=== PATIENT | female | born 1940 | race Caucasian/White ===

== ENCOUNTER 2024-10-15 15:07 | Outpatient (AMB) | payer MEDICARE, OTHER, SELFPAY ==
--- NOTE | 2024-10-15 15:17 | A.OFFVIS_ITS ---
Intake Visit Reasons: Chronic pain syndrome Intake Note: Pain today 04/19 Chief Cardiopulmonary Technologist Required: No Accompanied by: Daughter Allergies Beef Containing Products Allergy (Unknown, Verified 10/15/24 15:26) Unknown cephalexin Allergy (Unknown, Verified 10/15/24 15:26) Unknown Cephalosporins Allergy (Unknown, Verified 10/15/24 15:26) Unknown [place] And Derivatives Allergy (Unknown, Verified 10/15/24 15:26) Unknown codeine Allergy (Unknown, Verified 10/15/24 15:26) Nausea and Vomiting egg Allergy (Unknown, Verified 10/15/24 15:26) Unknown furosemide Allergy (Unknown, Verified 10/15/24 15:26) Unknown house dust Allergy (Unknown, Verified 10/15/24 15:26) Unknown ibuprofen Allergy (Unknown, Verified 10/15/24 15:) kidney shuts down inverted sugar Allergy (Unknown, Verified 10/15/24 15:26) Unknown Iodinated Contrast Media Allergy (Unknown, Verified 10/15/24 15:26) Hives lactase Allergy (Unknown, Verified 10/15/24 15:26) Unknown latex Allergy (Unknown, Verified 10/15/24 15:26) Rash levofloxacin Allergy (Unknown, Verified 10/15/24 15:26) Swelling milk Allergy (Unknown, Verified 10/15/24 15:26) Unknown Milk Containing Products (Dairy) Allergy (Unknown, Verified 10/15/24 15:26) Unknown mold Allergy (Unknown, Verified 10/15/24 15:26) Unknown nitrofurantoin Allergy (Unknown, Verified 10/15/24 15:26) Unknown Penicillins Allergy (Unknown, Verified 10/15/24 15:26) Unknown pollen extracts Allergy (Unknown, Verified 10/15/24 15:26) Unknown Pork/Porcine Containing Products Allergy (Unknown, Verified 10/15/24 15:26) Unknown potato Allergy (Unknown, Verified 10/15/24 15:26) Unknown Poultry Allergy (Unknown, Verified 10/15/24 15:26) Unknown rice Allergy (Unknown, Verified 10/15/24 15:26) Unknown Sulfa (Sulfonamide Antibiotics) Allergy (Unknown, Verified 10/15/24 15:26) Unknown wheat Allergy (Unknown, Verified 10/15/24 15:26) Unknown HPI Comments Details: Marta is very pleasant 84 years old female who presents in my office with complains on multiple pain generators. She reported pain in posterior neck bilateral shoulders and bilateral groins. She reports that because of her pain she can not sleep normally can not do activities of daily living can not take care of herself can not function normally. She reports her pain today is 10/10. She is retired individual. She reports that she uses wheelchair for ambulation but not for the reason of pain she became after the stroke very unstable with her gait. She reports that pain is most severe at night. In terms of tissue damage he reports her pain as shooting, stabbing, sharp, wrenching, hurting, aching, exhausting, killing, piercing sensation. She had multiple images of her painful conditions including x-rays of the shoulders x-ray of the back and x-ray of the hips. Unfortunately those images are not available for me. She had physical therapy in the past and now she has engaged in for sessions of physical therapy however she is failing to perform home exercise programs. She tried massage therapy with no success in the past and 10s unit which she denies help. She reported that Dr. Lane from [facility] perform some injections for her those injections were not image guided and they stopped helping the patient recently. The referral note states that the injections were trigger point injections. She has multiple medical problems including history of aortic stenosis with history of aortic valve replacement and CABG. She has history of stroke and history of hypertension she reports history of heart murmur she is currently not on any antidiabetic medications however she was diagnose with diabetes we in 2019. She had scarlet fever as a child. She has obstructive sleep apnea and uses CPAP machine at home. She has a history of nonfunctional kidney nephrectomy history of subdural hematoma she is suffering from chronic kidney disease and vertigo. She was diagnose with lumbar radiculitis. She has hypothyroidism she was obese but now she lost the weight and no longer require medications to treat her diabetes. Her past surgical history significant for appendectomy, breast cancer removal, coronary artery bypass grafting and aortic valve replacement. He denies smoking cigarettes she stopped smoking 40 years ago. She denies drinking alcohol, she drinks caffeinated beverages and she continually and excessively drinks soda. She denies recreational drugs. [facility] Medical History (Updated 10/15/24 @ 17:01 by Yaya Pearson MD) Chronic pain syndrome Obesity Insomnia Hypertension Allergic rhinitis Asthma Old myocardial infarction Constipation Hypothyroidism Aortic stenosis Tremor Osteoporosis Spinal stenosis of lumbar region Vertigo Diabetes type 2 Microalbuminuria Chronic kidney disease, stage 3 Subdural hematoma Diverticulitis of colon Depression Fatty liver Cholelithiasis Arthritis Fibromyalgia Surgical History (Updated 10/15/24 @ 15:52 by Tasha Pardo) History of right nephrectomy Social History (Updated 10/15/24 @ 15:44 by Tasha Pardo) Patient Tobacco Use Status: Former Tobacco user Review of Systems Const Reports no additional complaints ENT Reports Normal hearing present Card Reports as per HPI Resp Reports as per HPI GI Reports as per HPI Reports as per HPI Musc Reports as per HPI Neuro Reports as per HPI, Reports Normal hearing present, Denies Abnormal speech present, Denies confusion and Denies Sensory deficit (Neuro) Psych Reports no additional complaints and Denies confusion Physical Exam Const General: no acute distress; No confusion Orientation/consciousness: patient oriented x3 and No confusion Eyes General: appearance normal, both eyes and all related structures Pupils: Equal, round and reactive pupils present EOM: EOMs intact bilaterally Neck Other: Limited range of motion of cervical spine. Neck: No full ROM and Yes no meningeal signs Chest Chest palpation & inspection: normal inspection of the chest Resp Effort & Inspection: normal respiratory effort, able to speak in complete sentences, normal respiratory pattern, no audible wheezes and no cough Cardio Jugular venous distension: no JVD GI Inspection: Yes normal to inspection Neuro General: patient oriented x3, gait normal, no meningeal signs and No confusion Cranial nerves: Yes CN's II-XII intact bilaterally, Yes Equal, round and reactive pupils present, Yes Normal hearing present and Yes Ability to uche aterally elevate shoulders present Speech: No Abnormal speech present Gait exam (Neuro): Normal gait present Motor exam (neuro): 5/5 motor strength present throughout Sensory Exam: No Sensory deficit (Neuro) Extrem Other: Limited range of motion of bilateral shoulders. Limited range of motion of the cervical spine. General: No pedal edema Psych Speech and movement: Normal speech and movement present Affect: normal affect Attitude: cooperative Thought process: Normal thought process present Thought content: Normal thought content present Insight: Good insight present (Psych) Judgement: Good judgement present (Psych) Assessment & Plan Assessment & Plan (1) Bilateral shoulder pain: Code(s): M25.511 - Pain in right shoulder; M25.512 - Pain in left shoulder Category: Medical (2) Cervicalgia: Code(s): M54.2 - Cervicalgia Category: Medical (3) Osteoarthritis of shoulders, bilateral: Code(s): M19.011 - Primary osteoarthritis, right shoulder; M19.012 - Primary osteoarthritis, left shoulder Category: Medical (4) Osteoarthritis of hips, bilateral: Code(s): M16.0 - Bilateral primary osteoarthritis of hip Category: Medical (5) Spondylosis of cervical spine without myelopathy: Code(s): M47.812 - Spondylosis without myelopathy or radiculopathy, cervical region Category: Medical Plan It looks like that the injections which this patient had performed were trigger point injections. They lost its effectiveness by this time. I requested her to sign medical information release note to obtain images from the [facility]. After that I will be able to schedule her for bilateral shoulder injections bilateral hip injection possibly cervical medial branch blocks. After we will receive the images I will schedule her for appropriate procedures. Coding Level of Care Code New Pt Level 3 (53549) Diagnoses Bilateral shoulder pain M25.511; M25.512 Cervicalgia M54.2 Osteoarthritis of shoulders, bilateral M19.011; M19.012 Osteoarthritis of hips, bilateral M16.0 Spondylosis of cervical spine without myelopathy M47.812
--- OUTSIDE RECORDS SUMMARY | 2024-10-15 17:56 | XMS_ITS | Encounter Summary ---
Author Organization [place] [address] Care Team Providers Care Bed And Breakfast Innkeeper Name Role Phone Guerline Lott MD Primary Care Provider Reason for Visit * Reason Onset Date Comments Forms/questionnaires 10/09/2024 [facility] ( 025 - 11/30/2024) Encounter Details Date Type Department Care Team (Late st Contact Info) Description 10/09/2024 Telephone Adult Medicine - [place] [address] [place] [address] Guerline Lott MD [address] [place] [address] Forms/questionnaires ([facility] (10/02/2024 - 11/30/2024)) Social History Tobacco Use Types Packs/Day Years Used Date Smoking Tobacco: Former Cigarettes 1 08/25/1956 - 08/11/1984 Smokeless Tobacco: Never Alcohol Use Standard Drinks/Week Comments No 0 (1 standard drink = 0.6 oz pur e alcohol) Comments No Sex and Gender Information Value Date Recorded Sex Assigned at Female 09/07/2024 2:59 PM EST Legal Sex Female 11:16 AM EST Gender Identity Female 09/07/2024 2:59 PM EST Sexual Orientation Straight 09/07/2024 2: 59 PM EST documented as of this encounter Functional Status * Are you deaf or do you have serious difficulty hearing? Answer Date of Assessment Author No 09/27/2024 10:49 PM EDT Lily Veliz RN * Are you blind or do you have serious difficulty seeing, even when wearing glasses? Answer Date of Assessment Author No 09/27/2024 10:49 PM EDT Lily Veliz RN * Do you have serious difficulty walking or climbing stairs? Answer Date of Assessment Author Yes 09/27/2024 10:49 PM EDT Lily Veliz RN * Do you have serious difficulty dressing or bathing? Answer Date of Assessment Author Yes 09/27/2024 10:49 PM EDT Lily Veliz RN * Because of a physical, mental, or emotional condition, do you have serious difficulty doing errandsalone such as visiting the doctor? Answer Date of Assessment Author Yes 09/27/2024 10:49 PM CATET Lily Veliz RN documented as of this encounter Mental Status * Because of a physical, mental, or emotional condition, do you have serious difficulty concentrating, remembering, or making decisions? (5 years old or older) Answer Entry Date Author No 09/27/2024 10:49 PM EDT Lily Veliz RN documented in this encounter Progress Notes * Ayaka Salter MA - 10/15/2024 1:18 PM EDT Order encounter created. * Guerline Lott MD - 10/11/2024 12:52 PM EDT Recert signed. * Ayaka Salter MA - 10/10/2024 9:52 AM EDT Placed in pcp's in basket. * Livia Garcia - 10/09/2024 11:11 AM EDT HOME HEALTH CERTIFICATION AND PLAN OF CARE DATE RECEIVED:10/09/2024 AGENCY: [employer] CERT DATES:10/02/2024 - 11/30/2024 FAX NUMBER:[phone] [facility]:Given to Ayaka documented in this encounter Plan of Treatment Upcoming Encounters Date Type Department Care Team (Late st Contact Info) Description 10/24/2024 3:30 PM EDT Office Visit Adult Medicine - [place] [address] [place] [address] Hilario Lockett, PA [address] [place] [address] 10/25/2024 3:00 PM EDT Consult Orthopedic Surgery - [place] [address] [phone] Nhan Bermudez DPM [address] [address] 12/05/2024 3:00 PM EDT Office Visit Nephrology - [address] [address] Alex Davidson MD [address] [facility] [address] [place] [address] documented as of this encounter Visit Diagnoses Not on filedocumented in this encounter Care Teams Bed And Breakfast Innkeeper Relationship Specialty Start Date End Date Guerline Lott MD [address] [facility] [address] [place] [address] PCP - General Internal Medicine 12/28/21 documented as of this encounter
--- OUTSIDE RECORDS SUMMARY | 2024-10-15 17:56 | XMS_ITS | Clinical Summary ---
Author Organization [facility] [address] [facility] lding Address [address] [place] [address] Phone Care Team Providers Care Material Handler Floorperson Name Role Phone Guerline Lott MD Primary Care Provider Allergies Active Allergy Reactions Criticality Noted Date Comments Cephalexin 08/24/2005 Cephalosporins 04/05/2023 Codeine Nausea And Vomiting,Dermatitis ,Rash High 08/24/2005 Food Allergy Formula 08/24/2005 potatoes - wheat - eggs - rice - sugar - poultry - beef & pork - citrus - milk & milk products Furosemide 09/17/2013 House Dust 07/07/2006 Ibuprofen High 08/24/2005 states kidney shuts down Iodinated Contrast Media Hives Low 01/30/2008 Resolved with Benadryl Lactase 04/05/2023 Latex Rash High 08/24/2005 states skin sloghing off Levofloxacin Swelling High 08/24/2005 Mold 08/24/2005 altemaria - cephalosporium- pullularia - rhizopus Nitrofurantoin 08/24/2005 Other 04/09/2024 Kdc:albumin, Egg+flu Virus Vaccine+thimerosal+ pork Allergy Penicillins 08/24/2005 as young child - does not remember Pollen Extracts 09/15/2007 Sulfa (Sulfonamide Antibiotics) 09/17/2013 Medications clopidogreL (PLAVIX) 75 mg tablet Take 1 tablet (75 mg total) by mouth 1 (one) time each day. 02/27/202 4 Active levothyroxine (SYNTHROID, LEVOTHROID) 50 mcg tablet Take 1 tablet (50 mcg total) by mouth 1 (one) time each day. 4 Active atorvastatin (LIPITOR) 40 mg tablet Take 1 tablet (40 mg total) by mouth 1 (one) time each day. 3 Active venlafaxine XR (EFFEXOR-XR) 75 mg 24 hr capsule Take 1 capsule (75 mg total) by mouth 2 (two) times a day. 4 Active furosemide (LASIX) 20 mg tablet Take 1 tablet (20 mg total) by mouth 1 (one) time each day. 4 Active diclofenac (VOLTAREN) 1 % topical gel Apply 1 Each topically 2 times daily as needed (leg pain). 3 Active CRANBERRY ORAL Cranberry 600 MG Tab - Take by mouth. Once daily 3 Active acetaminophen (TYLENOL 8 HOUR) 650 mg 8 hr tablet Take 1 Tablet by mouth every 8 hours as needed for Pain. 3 Active nitroglycerin (NITROSTAT) 0.[address] 1 tablet under the tongue every 5 minutes as needed for Chest pain. 1 Active cholecalcifero l (VITAMIN D-3) 50 mcg (2,000 unit) capsule Take by mouth. Activ e blood-glucose meter kit Use to check blood sugar once daily 1 Active MULTIVITAMIN WITH MINERALS ORAL Take by mouth. Activ e blood sugar diagnostic (FreeStyle Lite Strips) test strip Use to check blood sugar once daily 8 Active fluticasone propionate (Flovent Diskus) 100 mcg/actuation diskus inhaler USE 1 INHALATION TWICE A DAY 3 Active amitriptyline (ELAVIL) 10 mg tablet TAKE 1 TABLET AT BEDTIME 90 tablet 3 4 Active fenofibrate micronized (LOFIBRA) 200 mg capsule Take 1 capsule (200 mg total) by mouth 1 (one) time each day before breakfast. 90 capsule 1 4 Active losartan (COZAAR) 25 mg tablet Take 1 tablet (25 mg total) by mouth 1 (one) time each day. 30 each 11 5 08/01/19 26 Active amLODIPine (NORVASC) 5 mg tablet Take 1 tablet (5 mg total) by mouth 1 (one) time each day. 90 each 3 5 08/01/19 26 Active meclizine (ANTIVERT) 25 mg tablet Take 1 tablet (25 mg total) by mouth 3 (three) times a day if needed for dizziness. 270 tablet 5 09/21/19 26 Active meclizine (ANTIVERT) 25 mg tablet Take 1 tablet (25 mg total) by mouth 3 (three) times a day if needed for dizziness. 270 tablet 5 09/21/19 25 Discontinu ed(Reorder ) Active Problems Problem Noted Date Diagnosed Date H/O right nephrectomy 08/01/2024 Cholelithiasis 08/22/2021 Overview (04/09/2024): On US at [facility] Fatty liver 08/22/2021 Overview (04/09/2024): On US at [facility] Diverticulosis of colon 07/28/2021 Overview (04/09/2024): Incidental finding on CT 06/29/2021 Subdural hematoma 06/11/2019 Overview (04/09/2024): [facility]; then rehab CKD (chronic kidney disease) stage 3, GFR 30-59 ml/min 01/02/2019 Microalbuminuria 01/02/2019 Type 2 diabetes mellitus with renal manifestatio ns 01/02/2019 Type 2 diabetes mellitus with cataract 9 Vertigo 07/28/2018 Spinal stenosis, lumbar 06/27/2017 Lumbar radiculitis 03/04/2017 NELLIE on CPAP 03/14/2015 Overview (04/09/2024): 14 cm H2O Type 2 diabetes mellitus with vascular disease 0 01/28/2015 Osteopenia 06/19/2014 Overview (04/09/2024): T score -2.3 left femoral neck; hip fracture risk 4.9% 07/01/16: Tscore -2.4 Tremor 06/11/2013 Aortic stenosis 12/07/2012 Overview (04/09/2024): Dr. Joshua, tissue valve, 05/2015. Hypothyroidism, acquired 11/01/2008 Constipation 01/12/2007 Old myocardial infarction 07/07/2006 Overview (04/09/2024): Total occlusion of LAD unable to stent--2005. Evidence of small apical FL from nuclear scan--see note of Dr. Elam on 04/22/2006. Asthma, mild persistent 03/17/2006 Diaphragmatic hernia 03/17/2006 Allergic rhinitis 08/25/2005 Chronic pain syndrome 08/25/2005 Depression 08/25/2005 Essential hypertension, benign 08/25/2005 Hyperlipidemia 08/25/2005 Insomnia 08/25/2005 Obesity 08/25/2005 Encounters Date Type Department Care Team Description 10/15/2024 Billing Patient Not Present Adult Medicine [facility] [address] [place] [address] Guerline Lott MD Other chronic back pain (Primary Dx); History of falling; Unspecified injury of head, subsequent encounter 10/15/2024 Billing Patient Not Present Adult Medicine [facility] [address] [place] [phone] Guerline Lott MD 10/09/2024 Telephone Adult [facility] [address] [place] [address] Guerline Lott MD Forms/questionnaires ([facility] (10/02/2024 - 11/30/2024)) 10/03/2024 Telephone Adult Medicine [facility] [address] [place] [address] Guerline Lott MD 09/27/2024 8:19 PM EDT - 09/28/2024 2:40 PM EDT Emergency [facility] [address] [place] [phone] Evelyn Somers MD Kenton, Mark A, MD Head injury, initial encounter (Primary Dx); Fall, initial encounter Discharge Disposition: Home or Self Care 09/11/2024 3:33 PM EST - 09/11/2024 11:59 PM EST Hospital Encounter [facility] [address] [place] [address] Carpal tunnel syndrome on both sides; Radiculopathy affecting upper extremity Discharge Disposition: Home or Self Care 09/10/2024 3:15 PM EST Office Visit Adult Medicine - [address] [phone] Renard Woo PA Chronic pain syndrome (Primary Dx); Stage 3b chronic kidney disease (CMS/HCC); Essential hypertension, benign; Type 2 diabetes mellitus with stage 3b chronic kidney disease, without long-term current use of insulin (CMS/HCC); Injury of nail bed of toe 09/06/2024 Telephone Adult Medicine - [address] [phone] Guerline Lott MD Arthritis 08/06/2024 5:44 PM EST - 08/06/2024 11:59 PM EST Hospital Encounter Radiology Department - [address] [phone] Stage 3b chronic kidney disease (CMS/HCC); Essential hypertension, benign; Type 2 diabetes mellitus with stage 3b chronic kidney disease, without long-term current use of insulin (CMS/HCC); H/O right nephrectomy; Pure hypercholesterolemia Discharge Disposition: Home or Self Care 08/01/2024 4:00 PM EST Consult Nephrology - [address] [phone] Alex Davidson MD Stage 3b chronic kidney disease (CMS/HCC) (Primary Dx); Essential hypertension, benign; Type 2 diabetes mellitus with stage 3b chronic kidney disease, without long-term current use of insulin (CMS/HCC); H/O right nephrectomy; Pure hypercholesterolemia from Last 3 Months Immunizations Name Administration Dates Next Due Influenza Quadravalent, MDCK , 0.5ml, with preservative (Flucelvax) 6mo and older 04/08/2017 Influenza trivalent, 0.5mL ( Fluzone High-dose) 65yo and older 07/01/2020,04/17/2018 Moderna SARS-CoV-2 COVID-19, mRNA, LNP-S, preservative free 05/30/2021 Pfizer (ages 12 & older) Bivalent, COVID-19 01/08 Pneumococcal conjugate 13 va lent (Prevnar 13, PCV13) 2mo and older 01/28/2015 Pneumococcal polysaccharide 23 valent (Pneumovax 23) 2yo and older 09/17/2008 Td Tetanus diptheria (Tdvax) 7yo and older 09/17 Zoster Live 11/28/2012 Surgical History Surgery Date Site/Laterality Comments NEPHRECTOMY 2005 Right PROCEDURE: HISTORICAL NEPHRECTOMY MASTECTOMY 2004 PROCEDURE: HISTORICAL MASTECTOMY; COMMENT: Right CATARACT EXTRACTION PROCEDURE: HISTORICAL CATARACT REMOVAL; COMMENT: bilateral TOTAL KNEE ARTHROPLASTY PROCEDURE: NH ARTHRP KNE CONDYLE&PLATU MEDIAL&LAT COMPARTMENTS; COMMENT: Dr. Gavin: wants abx prophylaxis for dental procedures OTHER SURGICAL HISTORY 05/16/2015 PROCEDURE: NH CABG W/ARTERIAL GRAFT SINGLE ARTERIAL GRAFT; COMMENT: Dr. Joshua; LOZANO to LAD OTHER SURGICAL HISTORY 05/16/2015 PROCEDURE: NH RPLCMT AORTIC VALVE ANNULUS ENLGMENT NONC SINUS; COMMENT: tissue COLONOSCOPY 07/13/2005 PROCEDURE: HISTORICAL COLONOSCOPY; COMMENT: nl COLONOSCOPY 07/15/2015 PROCEDURE: HISTORICAL COLONOSCOPY; COMMENT: Shital UPPER GASTROINTESTINAL ENDOSCOPY 12/06/2006 PROCEDURE: NH UPPER GI ENDOSCOPY PERFORMED; COMMENT: esophagitis, gastritis--- esophageal and gastric biopsies performed, duodenal biopsies not performed. COLONOSCOPY 10/18/2017 PROCEDURE: HISTORICAL COLONOSCOPY; COMMENT: diverticulosis UPPER GASTROINTESTINAL ENDOSCOPY 10/18/2017 PROCEDURE: UPPER GI ENDOSCOPY/EXAM; COMMENT: erosive gastritis Medical History Medical History Date Comments Essential hypertension, benign D X:Essential hypertension, benign Esophageal reflux DX:Esophageal reflux Fatty liver DX:Fatty liver; COMMENT: U/S 09/17 NELLIE on CPAP 03/14/2015 DX:NELLIE on CPAP Allergic rhinitis 08/25/2005 DX:Allergic rh initis Depression 08/25/2005 DX:Depression CKD (chronic kidney disease) stage 3, GFR 30-59 ml/min ([facility]/HCC) 01/02/2019 DX:CKD (chronic kidney dise ase) stage 3, GFR 30-59 ml/min ([facility]) Microalbuminuria 01/02/2019 DX:Microalbumin uria History of CVA (cerebrovascu lar accident) 01/02/2019 DX:History of CVA (cerebrova scular accident); COMMENT: 10/2018 Diaphragmatic hernia 03/17/2006 DX:Diaphrag matic hernia Type 2 diabetes mellitus wit h renal manifestations (CMS/HCC) 01/02/2019 DX:Type 2 diabetes mellitus with renal manifestations (HCC) History of bilateral catarac t extraction 01/02/2019 DX:History of bilateral vladimir ract extraction Type 2 diabetes mellitus with cataract 01/02/2019 DX:Type 2 diabetes mellitus with cataract (HCC) Obesity 08/25/2005 DX:Obesity Hyperlipidemia 08/25/2005 DX:Hyperlipidemi a Insomnia 08/25/2005 DX:Insomnia History of breast cancer 08/25/2005 DX:Hist ory of breast cancer; COMMENT: 2003. Chemo, Taxol, Femara, s/p mastectomy and radiation. Asthma, mild persistent 03/17/2006 DX:Asthm a, mild persistent Aortic stenosis 12/07/2012 DX:Aortic stenos is; COMMENT: Dr. Joshua, tissue valve, 05/2015. S/P CABG x 1 05/16/2015 DX:S/P CABG x 1; COMMENT: Dr. Joshua Chronic pain syndrome DX:Chronic pain syndrome Diverticulosis of colon 07/28/2021 DX:Diver ticulosis of colon; COMMENT: Incidental finding on CT 06/29/2021 Family History Medical History Relation Name Comments No Known Problems Daughter CABG Father Heart attack Father Hypertension Father Mental illness Father Stroke Father Arthritis Mother Heart attack Mother Hypertension Mother Mental illness Mother Other cancer Sister 1 Breast cancer Sister 2 Breast cancer Sister 3 No Known Problems Son 1 Colon polyps Son 2 Relation Name Status Comments Daughter Alive 1 daughter 36 y ears old, healthy (rare cancer) Father Maternal Grandfather Maternal Grandmother Mother Paternal Grandfather Paternal Grandmother Sister 1 Alive Sister 2 Sister 3 Son 1 Alive 2 sons ages 41 and 38, healthy Son 2 Alive Social History Tobacco Use Types Packs/Day Years Used Date Smoking Tobacco: Former Cigarettes 1 08/25/1956 - 08/11/1984 Smokeless Tobacco: Never Tobacco Cessation:Counseling Given: Not Answered Alcohol Use Standard Drinks/Week Comments No 0 (1 standard drink = 0.6 oz pur e alcohol) Comments No Sex and Gender Information Value Date Recorded Sex Assigned at Female 09/07/2024 2:59 PM EST Legal Sex Female 11:16 AM EST Gender Identity Female 09/07/2024 2:59 PM EST Sexual Orientation Straight 09/07/2024 2: 59 PM EST Obstetrics History Last Filed Vital Signs Vital Sign Reading Time Taken Comments Blood Pressure 160/61 09/28/2024 12:37 PM EDT Pulse 80 09/28/2024 12:37 PM EDT Temperature 36.8 ??C (98.2 ??F) 09/28/2024 12:37 PM E DT Respiratory Rate 18 09/28/2024 12:37 PM EDT Oxygen Saturation 97% 09/28/2024 12:37 PM EDT Inhaled Oxygen Concentration - - Weight 70.8 kg (156 lb) 09/27/2024 8:29 PM EDT Height 161.5 cm (5' 3.6 ) 09/27/2024 8:29 PM EDT Body Mass Index 27.12 09/27/2024 8:29 PM EDT Plan of Treatment Upcoming Encounters Date Type Department Care Team (Late st Contact Info) Description 10/24/2024 3:30 PM EDT Office Visit Adult Medicine - [place] [address] [place] [phone] Hilario Lockett PA [address] [place] [address] 10/25/2024 3:00 PM EDT Consult Orthopedic Surgery - [place] [phone] [phone] Nhan Bermudez DPM [address] [phone] 12/05/2024 3:00 PM EDT Office Visit Nephrology - [address] [phone] Alex Davidson MD [address] [facility] [address] [place] [phone] Health Maintenance Due Date Last Done Comments Diabetes: Annual Foot Exam 1950 Diabetes: Annual Retina Eye Exam 1950 Zoster Vaccines (2 of 3) 01/23/2013 11/28/2012 RSV Immunization Adult Patients (1 - 1-dose 75+ series) 2016 DTaP,Tdap,and Td Vaccines (2 - Td or Tdap) 09/17/2018 09/17/2008 Depression Screening 06/19/2022 Falls Risk Assessment 06/19/2022 Osteoporosis Screening (Bone Density Screening) 06/19/2022 Social Influencers of Health Screening 06/19/2022 Medicare Annual Wellness Visit 04/05/2024 04/05/2023 Colorectal Cancer Screening: Colonoscopy 04/09/2024 10/18/2017 Diabetes: Blood Sugar Control Test (HGBA1C) 06/01/2024 11/30/2023, 11/30/2023 Diabetes: Annual Urine Albumin-Creatinine Ratio (uACR) 08/01/2024 08/01/2023 Influenza Vaccine (Season Ended) 2025 06/30/2021, 04/10/2021, 07/01/2020, Additional history exists Diabetes: Annual GFR (Glomerular Filtration Rate) 09/27/2025 09/27/2024, 05/15/2024, 11/30/2023, Additional history exists Hypertension/CHF/CAD Annual BMP Blood Test 09/27/2025 09/27/2024, 05/15/2024, 11/30/2023, Additional history exists Cholesterol Screening (Lipid Panel) 12/13/2028 12/14/2023, 12/14/2023, 12/14/2023, Additional history exists Pneumococcal Vaccine: 50+ Years Completed 01/28/2015, 09/17/2008 COVID-19 Vaccine Completed 06/02/2024, , 05/30/2021, Additional history exists HIB Vaccines Aged Out No longer eligi ble based on patient's age to complete this topic HPV Vaccines Aged Out No longer eligi ble based on patient's age to complete this topic Hepatitis A Vaccines Aged Out No long er eligible based on patient's age to complete this topic Hepatitis B Vaccines Aged Out No long er eligible based on patient's age to complete this topic IPV Vaccines Aged Out No longer eligi ble based on patient's age to complete this topic MMR Vaccines Aged Out No longer eligi ble based on patient's age to complete this topic Meningococcal ACWY Vaccine Aged Out N o longer eligible based on patient's age to complete this topic Meningococcal B Vaccine Aged Out No l onger eligible based on patient's age to complete this topic RSV Immunization Patients Under 20 months Aged Out No longer eligible based on patient's age to complete this topic Varicella Vaccines Aged Out No longer eligible based on patient's age to complete this topic Procedures Procedure Name Priority Date/Time Associated Diagnosis Comments ECG ANNOTATED 10/01/2024 TROPONIN I HIGH SENSITIVITY STAT 09/27/2024 11:19 PM EDT CHEN URINE CULTURE TUBE STAT 09/27/2024 10:12 PM EDT URINALYSIS WITH REFLEX MICROSCOPIC AND CULTURE STAT 09/27/2024 10:12 PM EDT URINALYSIS WITH REFLEX MICROSCOPIC AND CULTURE STAT 09/27/2024 10:[address] CERVICAL SPINE WO CONTRAST STAT 09/27/2024 9:[address] HEAD WO CONTRAST STAT 09/27/2024 9 :21 PM EDT CBC WITH AUTO DIFFERENTIAL STAT 09/27/2024 9:01 PM EDT CREATINE KINASE STAT 09/27/2024 9:01 PM EDT COMPREHENSIVE METABOLIC PANEL STAT 09/27/2024 9:01 PM EDT TROPONIN I HIGH SENSITIVITY STAT 09/27/2024 9:01 PM EDT MAGNESIUM STAT 09/27/2024 9:01 PM EDT CBC AND DIFFERENTIAL STAT 09/27/2024 9:01 PM EDT ECG 12-LEAD STAT 09/27/2024 8:38 PM EDT EMG 2 LIMBS Routine 09/11/2024 3:45 PM EST Carpal tunnel syndrome on both sides Radiculopathy affecting upper extremity US RETROPERITONEAL COMPLETE Routine 08/06/2024 6:21 PM EST Stage 3b chronic kidney disease (CMS/HCC) Essential hypertension, benign Type 2 diabetes mellitus with stage 3b chronic kidney disease, without long-term current use of insulin (CMS/HCC) H/O right nephrectomy Pure hypercholesterolemia LIPID PANEL Routine 12/14/2023 HEMOGLOBIN A1C Routine 11/30/2023 HM URINE ALBUMIN CREATININE RATIO Routine 08/01/2023 HM COLONOSCOPY Routine 10/18/2017 from Last 3 Months or Most Recently Relevant to Health Maintenance Results * ECG-Annotated (10/01/2024) us Provider Onbase MD ECG ORDERABLES Final Result * Troponin I high sensitivity (09/27/2024 11:19 PM EDT) Only the most recent of2 resultswithin the time period is included. High Sensitivity Troponin I 44 <=54 ng/L LAB CHEMISTRY METHOD 09/28/2024 12:17 AM EDT [facility] Blood Venous blood specimen / Unknown Venipuncture / Unknown 09/27/2024 11:19 PM EDT 09/27/2024 11:52 PM EDT Narrative [facility] - 09/28/2024 12:17 AM EDT High levels of biotin in samples may falsely decrease hsTroponin values. ??Use caution when interpreting hsTroponin results in patients taking biotin who exhibit renal impairment (eGFR <60) or in patients taking more than 20 mg/day of biotin. [facility] BLOOD ORDERABLES Final Result [facility] [address] [place] [address], [place] [phone] * Urinalysis with reflex microscopic and culture (09/27/2024 10:12 PM EDT) Specific [place] Urine 1.014 1.003 - 1.030 LAB URINALYSIS - AUTOMATED METHOD 09/27/2024 10:33 PM EDT [facility] pH, Urine 6.5 5.0 - 8.0 pH LAB URINALYSIS - AUTOMATED METHOD 09/27/2024 10:33 PM EDT [facility] Leukocytes, Urine Negative Negative LAB URINALYSIS - AUTOMATED METHOD 09/27/2024 10:33 PM [facility] Nitrite, Urine Negative Negative LAB URINALYSIS - AUTOMATED METHOD 09/27/2024 10:33 PM [facility] Protein, Urine Negative <=Trace mg/dL LAB URINALYSIS - AUTOMATED METHOD 09/27/2024 10:33 PM [facility] Glucose, Urine Negative Negative mg/dL LAB URINALYSIS - AUTOMATED METHOD 09/27/2024 10:33 PM [facility] Ketones, Urine Negative Negative mg/dL LAB URINALYSIS - AUTOMATED METHOD 09/27/2024 10:33 PM [facility] Urobilinogen, Urine 0.2 0.2 - 1.0 mg/dL LAB URINALYSIS - AUTOMATED METHOD 09/27/2024 10:33 PM [facility] Bilirubin, Urine Negative Negative LAB URINALYSIS - AUTOMATED METHOD 09/27/2024 10:33 PM [facility] Blood, Urine Negative Negative LAB URINALYSIS - AUTOMATED METHOD 09/27/2024 10:33 PM [facility] Urine Urine specimen obtained by clean catch procedure / Unknown Non-blood Collection / Unknown 09/27/2024 10:12 PM EDT 09/27/2024 10:26 PM EDT [facility] URINE ORDERABLES Final Result Performing Organization Address [facility]/ZIP Co de Phone Number [facility] [address] [place] [address], [place] [phone] * Chen urine culture tube (09/27/2024 10:12 PM EDT) Extra Tube Hold for add-ons. 09/28/2024 12:03 AM EDT [facility] Comment:Auto resulted. Urine Urine specimen obtained by clean catch procedure / Unknown Non-blood Collection / Unknown 09/27/2024 10:12 PM EDT 09/27/2024 10:26 PM EDT [facility] URINE ORDERABLES Final Result Performing Organization Address [facility] de Phone Number [facility] [address] [place] [address], [place] [phone] * CT Cervical Spine wo Contrast (09/27/2024 9:21 PM EDT) Anatomical Region Laterality Modality Spine, C-spine Computed Tomogra phy 09/27/2024 9:59 PM EDT Impressions 09/27/2024 9:59 PM EDT No acute findings. Additional findings as described. This document has been electronically signed by: Babak Santiago MD on 09/27/2024 21:59:27 Narrative 09/27/2024 9:59 PM EDT INDICATION: head injury, fall CT cervical spine without contrast Comparison: None Findings: Exaggeration of the cervical lordosis. Osteopenia. Multilevel spondylosis with osteophytosis, uncovertebral hypertrophy, asymmetric severe right-sided facet arthropathy and degenerative disc disease. Anterolisthesis at C3-C4, C4-C5, C5-C6 and C7-T1. Calcified posterior disc osteophyte complex versus ossification of the posterior longitudinal ligament noted at T2-T3 with associated spinal canal narrowing. No acute fractures or dislocations. No cervical fluid collections or masses. No consolidation or effusion at the lung apices. Procedure Note Babak Santiago MD - 09/27/2024 INDICATION: head injury, fall CT cervical spine without contrast Comparison: None Findings: Exaggeration of the cervical lordosis. Osteopenia. Multilevel spondylosis with osteophytosis, uncovertebral hypertrophy, asymmetric severe right-sided facet arthropathy and degenerative disc disease. Anterolisthesis at C3-C4, C4-C5, C5-C6 and C7-T1. Calcified posterior disc osteophyte complex versus ossificationof the posterior longitudinal ligament noted at T2-T3 with associatedspinal canal narrowing. No acute fractures or dislocations. No cervical fluid collections or masses. No consolidation or effusion at the lung apices. IMPRESSION: No acute findings. Additional findings as described. This document has been electronically signed by: Babak Santiago MD on 09/27/2024 21:59:[address] PROCEDURES Final Re sult * CT Head wo Contrast (09/27/2024 9:21 PM EDT) Anatomical Region Laterality Modality Head and Neck Computed Tomogra phy 09/27/2024 10:0 1 PM EDT Impressions 09/27/2024 10:01 PM EDT 1. No acute intracranial findings. 2. Additional findings as described. This document has been electronically signed by: Babak Santiago MD on 09/27/2024 22:01:36 Narrative 09/27/2024 10:01 PM EDT INDICATION: head trauma, fall CT head without contrast Comparison: None Findings: Scattered subcortical and periventricular hypoattenuation, likely in keeping with chronic small vessel ischemic disease. Parenchymal volume loss with compensatory prominence of the ventricles and CSF spaces. No acute territorial infarction, intracranial hemorrhage, midline shift or hydrocephalus. Empty sella is demonstrated, nonspecific. The visualized paranasal sinuses and mastoid air cells are normal. The orbits are unremarkable. Minimal right posterior parietal scalp edema. There is no acute fracture. Bilateral lens extraction. Procedure Note Babak Santiago MD - 09/27/2024 INDICATION: head trauma, fall CT head without contrast Comparison: None Findings: Scattered subcortical and periventricular hypoattenuation, likely in keeping with chronic small vessel ischemic disease. Parenchymal volume loss with compensatory prominence of the ventricles and CSF spaces. No acute territorial infarction, intracranial hemorrhage, midline shift or hydrocephalus. Empty sella is demonstrated, nonspecific. The visualized paranasal sinuses and mastoid air cells are normal. The orbits are unremarkable. Minimal right posterior parietal scalp edema. There is no acute fracture. Bilateral lens extraction. IMPRESSION: 1. No acute intracranial findings. 2. Additional findings as described. This document has been electronically signed by: Babak Santiago MD on 09/27/2024 22:01:[address] PROCEDURES Final Re sult * (ABNORMAL) CBC auto differential (09/27/2024 9:01 PM EDT) WBC 8.0 4.8 - 10.8 K/mcL LAB HEMETOLOGY METHOD 09/27/2024 9:11 PM EDT [facility] RBC 4.80 3.80 - 4.80 M/mcL LAB HEMETOLOGY METHOD 09/27/2024 9:11 PM EDT [facility] Hemoglobin 14.5 11.5 - 16.0 g/dL LAB HEMETOLOGY [facility]/27[facility]24 [facility] Hematocrit 43.5 35.0 - 47.0 % LAB HEMETOLOGY METHOD 09/27/2024 9:11 PM EDT [facility] MCV 90.8 79.0 - 98.0 FL LAB HEMETOLOGY METHOD 09/27/2024 9:11 PM EDT [facility] MCH 30.3 27.0 - 32.0 pcg LAB HEMETOLOGY METHOD 09/27/2024 9:11 PM EDT [facility] MCHC 33.3 32.0 - 37.0 g/dL LAB HEMETOLOGY METHOD 09/27/2024 9:11 PM EDT [facility] RDW 13.6 11.0 - 15.0 % LAB HEMETOLOGY METHOD 09/27/2024 9:11 PM [facility] Platelets 257 130 - 400 K/mcL LAB HEMETOLOGY METHOD 09/27/2024 9:11 PM [facility] MPV 10.0 7.0 - 11.0 FL LAB HEMETOLOGY METHOD 09/27/2024 9:11 PM [facility] NRBC 0.0 <1.0 % LAB HEMETOLOGY METHOD 09/27/2024 9:11 PM [facility] NRBC Absolute 0.00 <0.10 K/mcL LAB HEMETOLOGY METHOD 09/27/2024 9:11 PM [facility] Neutrophils Relative 64.9 % LAB HEMETOLOGY METHOD 09/27/2024 9:11 PM [facility] Lymphocytes Relative 26.6 % LAB HEMETOLOGY METHOD 09/27/2024 9:11 PM [facility] Monocytes Relative 5.8 % LAB HEMETOLOGY METHOD 09/27/2024 9:11 PM [facility] Eosinophils Relative 2.0 % LAB HEMETOLOGY METHOD 09/27/2024 9:11 PM [facility] Basophils Relative 0.1 % LAB HEMETOLOGY METHOD 09/27/2024 9:11 PM [facility] Immature Granulocytes Relative 0.6 % LAB HEMETOLOGY METHOD 09/27/2024 9:11 PM [facility] Neutrophils Absolute 5.21 1.50 - 7.00 K/mcL LAB HEMETOLOGY METHOD 09/27/2024 9:11 PM [facility] Lymphocytes Absolute 2.14 1.00 - 5.00 K/mcL LAB HEMETOLOGY METHOD 09/27/2024 9:11 PM EDT [facility] Monocytes Absolute 0.47 0.20 - 1.00 K/mcL LAB HEMETOLOGY METHOD 09/27/2024 9:11 PM EDT [facility] Eosinophils Absolute 0.16 0.00 - 0.50 K/mcL LAB HEMETOLOGY METHOD 09/27/2024 9:11 PM EDT [facility] Basophils Absolute 0.01 0.00 - 0.20 K/[facility] HEMETOLOGY METHOD 09/27/2024 9:11 PM EDT [facility] Immature Granulocytes Absolute 0.05(H) 0.00 - 0.03 K/[facility] LAB HEMETOLOGY METHOD 09/27/2024 9:11 PM EDT [facility] Blood Venous blood specimen / Unknown Venipuncture / Unknown 09/27/2024 9:01 PM EDT 09/27/2024 9:06 PM EDT [facility] LAB BLOOD ORDERABLES Final Result [facility] [address] [place] [address], [place] [phone] * Magnesium (09/27/2024 9:01 PM EDT) Magnesium 2.0 1.9 - 2.6 mg/dL LAB CHEMISTRY METHOD 09/27/2024 9:41 PM EDT [facility] Blood Venous blood specimen / Unknown Venipuncture / Unknown 09/27/2024 9:01 PM EDT 09/27/2024 9:06 PM EDT Hazel DIAZ LAB BLOOD ORDERABLES Final Result [facility] [address] [place] [address], [place] [phone] * Cardiac Enzymes - CPK (09/27/2024 9:01 PM EDT) Pathologist [facility] Total CK 75 22 - 269 unit/L LAB CHE[facility]STR[facility] Blood Venous blood specimen / Unknown Venipuncture / Unknown 09/27/2024 9:01 PM EDT 09/27/2024 9:06 PM EDT us Hazel DIAZ LAB BLOOD ORDERABLES Final Result [facility] [address] [place] [address], [place] [phone] * (ABNORMAL) Comprehensive metabolic panel (09/27/2024 9:01 PM EDT) [facility] Sodium 135 133 - 145 mmol/L LAB CHEMISTRY METHOD 09/27/2024 9:57 PM [facility] Potassium 4.5 3.5 - 5.5 mmol/L LAB CHEMISTRY METHOD 09/27/2024 9:57 PM [facility] Chloride 105 96 - 110 mmol/L LAB CHEMISTRY METHOD 09/27/2024 9:57 PM [facility] CO2 25 21 - 32 mmol/L LAB CHEMISTRY METHOD 09/27/2024 9:57 PM [facility] Anion Gap 5 3 - 11 LAB CHEMISTRY METHOD 09/27/2024 9:57 PM [facility] Glucose 138(H) 70 - 100 mg/dL LAB CHEMISTRY METHOD 09/27/2024 9:57 PM [facility] BUN 31(H) 5 - 25 mg/dL LAB CHEMISTRY METHOD 09/27/2024 9:57 PM [facility] Creatinine 1.18(H) 0.50 - 1.10 mg/dL LAB CHEMISTRY METHOD 09/27[facility]2024 9:[facility] eGFR 46(L) >=60 mL/min/1. 73m2 LAB CHEMISTRY METHOD 09/27/2024 9:57 PM [facility] Comment:Calculation based on the??Chronic Kidney Disease Epidemiology Collaboration (CKD-EPI) equation refit??without adjustment for race. BUN/Creatinine Ratio 26.3 LAB CHEMISTRY METHOD 09/27/2024 9:57 PM [facility] Calcium 10.1 8.5 - 10.5 mg/dL LAB CHEMISTRY METHOD 09/27/2024 9:57 PM [facility] AST (SGOT) 25 10 - 42 unit/L LAB CHEMISTRY METHOD 09/27/2024 9:57 PM [facility] ALT (SGPT) 34 10 - 60 unit/L LAB CHEMISTRY METHOD 09/27/2024 9:57 PM [facility] Alkaline Phosphatase 68 42 - 121 unit/L LAB CHEMISTRY METHOD 09/27/2024 9:57 PM [facility] Total Protein 9.0(H) 6.0 - 8.0 g/dL LAB CHEMISTRY METHOD 09/27/2024 9:57 PM [facility] Albumin 4.4 3.2 - 5.0 g/dL LAB CHEMISTRY METHOD 09/27/2024 9:57 PM [facility] Total Bilirubin 0.5 0.0 - 1.4 mg/dL LAB CHEMISTRY METHOD 09/27/2024 9:57 PM [facility] Blood Venous blood specimen / Unknown Venipuncture / Unknown 09/27/2024 9:01 PM EDT 09/27/2024 9:06 PM EDT us Hazel DIAZ LAB BLOOD ORDERABLES Final Result [facility] [address] [place] [address], * ECG 12 lead (09/27/2024 8:38 PM EDT) Ventricular Rate ECG 86 BPM GEMUSE Atrial Rate 86 BPM GEMUSE P-R Interval 188 ms GEMUSE QRS Duration 118 ms GEMUSE Q-T Interval 396 ms GEMUSE QTc 473 ms GEMUSE P Wave [place] 45 degrees GEMUSE R [place] -23 degrees GEMUSE T [place] 107 degrees GEMUSE ECG Interpretation Sinus rhythm with occasional Premature ventricular complexes Incomplete left bundle branch block ST and T wave abnormality, consider lateral ischemia Abnormal ECG When compared with ECG of 20-APR-2024 12:47, Premature ventricular complexes are now Present Confirmed by Rohan GONGORA JOHN ([id number]) on 09/29/2024 11:06:49 AM GEMUSE 09/27/2024 8:38 PM EDT 09/29/2024 11:06 AM EDT us Hazel DIAZ ECG ORDERABLES Final Resu lt GEMUSE * EMG two limbs (09/11/2024 3:45 PM EST) Narrative Genoveva Fung MD - 09/11/2024 4:13 PM EST Please see the attached report us C Yvan Lane MD NEUROLOGY ORDERABLES Final Result * US Retroperitoneal Complete (08/06/2024 6:21 PM EST) Anatomical Region Laterality Modality Body Ultrasound 08/07/2024 9:40 AM EST Impressions 08/07/2024 9:53 AM EST 1. ??No left hydronephrosis. 2. ??Post void urinary bladder residual of 88 cc. -------- FINAL REPORT -------- Dictated By: Maday Delatorre Dictated Date: 08/07/2024 09:40 ET Assigned Physician: Maday Delatorre Reviewed and Electronically Signed By: Maday Delatorre Signed Date: 08/07/2024 09:53 ET Workstation ID: [id number] Transcribed By: Self Edit Transcribed Date: 08/07/2024 09:40 ET Narrative 08/07/2024 9:53 AM EST US RETROPERITONEAL COMPLETE TECHNIQUE: Complete ultrasound evaluation of the retroperitoneum was performed. ?? COMPARISON: Abdominal ultrasound on March 02, 2012 Reason for the study: Renal failure, acute FINDINGS: RIGHT KIDNEY: Status post nephrectomy LEFT KIDNEY: ??Size: 10.0 cm. No shadowing stones or hydronephrosis. BLADDER: ??Urinary bladder is partially distended, without gross abnormality. Only left ureteral jet seen. Prevoid urinary bladder volume measures 126 cc. Post void volume of 88 cc. Procedure Note Maday Delatorre MD - 08/07/2024 US RETROPERITONEAL COMPLETE TECHNIQUE: Complete ultrasound evaluation of the retroperitoneum was performed. COMPARISON: Abdominal ultrasound on March 02, 2012 Reason for the study: Renal failure, acute FINDINGS: RIGHT KIDNEY: Status post nephrectomy LEFT KIDNEY: Size: 10.0 cm. No shadowing stones or hydronephrosis. BLADDER: Urinary bladder is partially distended, without grossabnormality. Only left ureteral jet seen. Prevoid urinary bladder volumemeasures 126 cc. Post void volume of 88 cc. IMPRESSION: 1. No left hydronephrosis. 2. Post void urinary bladder residual of 88 cc. -------- FINAL REPORT -------- Dictated By: Maday Delatorre Dictated Date: 08/07/2024 09:40 ET Assigned Physician: Maday Delatorre Reviewed and Electronically Signed By: Maday Delatorre Signed Date: 08/07/2024 09:53 ET Workstation ID: [id number] Transcribed By: Self Edit Transcribed Date: 08/07/2024 09:40 ET Alex Davidson MD [facility] US PROCEDURES Final Result * (ABNORMAL) Lipid panel (12/14/2023) LDL/HDL Ratio 7(A) 0 - 4 Triglycerides 508(A) 0 - 150 mg/dL Cholesterol 180 0 - 200 mg/dL HDL 26(A) >=40 mg/dL Blood Venous blood specimen / Unknown Historical Provider LAB BLOOD ORDERABLES Miri l Result * Hemoglobin A1c (11/30/2023) Hemoglobin A1C 6.0 <=6.5 % Blood Venous blood specimen / Unknown Result [facility] Provider LAB BLOOD ORDERABLES Miri l Result * Urine Albumin Creatinine Ratio (08/01/2023) Urine Albumin Creatinine Ratio abstracted Result [facility] Provider HEALTH MAINTENANCE Final Result * Colonoscopy (10/18/2017) Pathologist [facility] Colonoscopy abstracted,no interpretation Anatomical Region Laterality Modality Other Result [facility] Provider HEALTH MAINTENANCE Final Result from Last 3 Months or Most Recently Relevant to Health Maintenance Insurance [facility] [employer] MEDICARE Advance Directives Documents on File Type Date Recorded Patient Php Programmer Expl anation DNR (Do Not Resuscitate) 06/02/2024 12:34 PM [employer] Health Care Decision (hx) 08/01/2019 ADVANCE DIRECTIVE Health Care Decision (hx) 08/01/2019 ADVANCE DIRECTIVE Health Care Decision (hx) 08/01/2019 ADVANCE DIRECTIVE Health Care Decision (hx) 08/01/2019 ADVANCE DIRECTIVE Health Care Decision (hx) 08/01/2019 ADVANCE DIRECTIVE Health Care Decision (hx) 08/01/2019 ADVANCE DIRECTIVE Health Care Decision (hx) 08/01/2019 ADVANCE DIRECTIVE Health Care Decision (hx) 08/01/2019 ADVANCE DIRECTIVE Health Care Decision (hx) 08/01/2019 ADVANCE DIRECTIVE Health Care Decision (hx) 08/01/2019 ADVANCE DIRECTIVE Health Care Decision (hx) 08/01/2019 ADVANCE DIRECTIVE Health Care Decision (hx) 08/01/2019 ADVANCE DIRECTIVE * No CPR/Do Not Intubate (Latest Code Status on File) Date Activated Date Inactivated Comments 09/27/2024 10:45 PM 09/28/2024 4:51 PM This code s tatus was ascertained in the following way: Code status discussion: discussion with patient To update the patient's code status, place a code status order. Do not modify or discontinue any currently active code status orders. Care Teams Material Handler Floorperson Relationship Specialty Start Date End Date Guerline Lott MD [address] [place] [id number] PCP - General Internal Medicine 12/28/21
--- OUTSIDE RECORDS SUMMARY | 2024-10-15 17:56 | XMS_ITS | Encounter Summary ---
Author Organization [facility] [place] [address] Care Team Providers Care Computer Systems Engineer Name Role Phone Guerline Lott MD Primary Care Provider Encounter Details Date Type Department Care Team (Late st Contact Info) Description 10/03/2024 Telephone Adult Medicine - [place] [address] [place] [phone] Guerline Lott MD [address] [place] [address] Social History Tobacco Use Types Packs/Day Years [...] of Assessment Author No 09/27/2024 10:49 PM Lily Marlow RN * Are you blind or do [...] 10:49 PM EDT Lily Veliz RN documented as of this encounter Mental Status * Because of a physical, mental, or emotional condition, do you have serious difficulty concentrating, remembering, or making decisions? (5 years old or older) Answer Entry Date Author No 09/27/2024 10:49 PM EDT Lily Veliz RN documented in this encounter Progress Notes * Angel Esteves RN - 10/03/2024 2:08 PM EDT Is it all right to give verbal for nursing and PT * Amparo Chopra - 10/03/2024 1:59 PM EDT nurse Lily from [employer] called asking for a call back with the Verbal Order to start services for Physical Therapy. Please call # [phone] documented in this encounter Plan of Treatment Upcoming Encounters Date Type Department Care Team (Late st Contact Info) Description 10/24/2024 3:30 PM EDT Office Visit Adult Medicine - [address] [phone] Hilario Lockett PA [address] [place] [address] 10/25/2024 3:00 PM EDT Consult Orthopedic Surgery - [address] [phone] Nhan Bermudez, DPM [address] [facility] [address] [place] [address] 12/05/2024 3:00 PM EDT Office Visit Nephrology - [address] [phone] Alex Davidson MD 100 [facility] [address] [place] [address] documented as of this encounter Visit Diagnoses Not on filedocumented in this encounter Care Teams Computer Systems Engineer Relationship Specialty Start Date End Date Guerline Lott MD 101 [facility] [address] [place] [address] PCP - General Internal Medicine 12/28/21 documented as of this encounter
--- OUTSIDE RECORDS SUMMARY | 2024-10-15 17:56 | XMS_ITS | Encounter Summary ---
Author Organization [employer] [place] [address] Care Team Providers Care Registered Nurse Step Down Name Role Phone Guerline Lott MD Primary Care Provider Encounter Details Date Type Department Care Team (Late st Contact Info) Description 10/15/2024 Billing Patient Not Present Adult Medicine - [place] [address] [place] [phone] Guerline Lott MD [address] [place] [address] Other chronic back pain (Primary Dx); History of falling; Unspecified injury of head, subsequent encounter Social History Tobacco Use Types Packs/Day Years [...] Entry Date Author No 09/27/2024 10:49 PM CATET Lily Veliz RN documented in this encounter Progress Notes * Ayaka Salter MA - 10/15/2024 1:24 PM EDT Start of Care Date: 10/02/24 Date of certification period: 10/02/24-11/30/24 Date of service = signature date 10/11/24 Hospice patient: no Home Care Agency: [facility] [employer] Recertification Code G0179 Initial Code G0180 documented in this encounter Plan of Treatment Upcoming Encounters Date Type Department Care Team (Late st Contact Info) Description 10/24/2024 3:30 PM EDT Office Visit Adult Medicine - [address] [phone] Hilario Lockett PA [address] [place] [address] 10/25/2024 3:00 PM EDT Consult Orthopedic Surgery - [address] [phone] Nhan Bermudez DPM [facility] [address] [place] [address] 12/05/2024 3:00 PM EDT Office Visit Nephrology - [place] [address] [place] [address] Alex Davidson MD 100 [facility] [address] [place] [address] documented as of this encounter Visit Diagnoses Diagnosis Other chronic back pain- Primary History of falling Unspecified injury of head, subsequent encounter documented in this encounter Care Teams Registered Nurse Step Down Relationship Specialty Start Date End Date Guerline Lott MD 101 [facility] [address] [place] [address] PCP - General Internal Medicine 12/28/21 documented as of this encounter
--- OUTSIDE RECORDS SUMMARY | 2024-10-15 17:56 | XMS_ITS | Encounter Summary ---
Author Organization [place] [address] Care Team Providers Care Dietist Name Role Phone Guerline Lott MD Primary Care Provider Encounter Details Date Type Department Care Team (Late st Contact Info) Description 10/15/2024 Billing Patient Not Present Adult Medicine - [place] [address] [place] [address] Guerline Lott MD [address] [place] [address] Social History Tobacco Use Types Packs/Day Years [...] Lily Veliz RN documented in this encounter Plan of Treatment Upcoming Encounters Date Type Department Care Team (Late st Contact Info) Description 10/24/2024 3:30 PM EDT Office Visit Adult Medicine - [place] [address] [place] [address] Hilario Lockett PA [address] [place] [address] 10/25/2024 3:00 PM EDT Consult Orthopedic Surgery - [place] [address] [phone] Nhan Bermudez DPM [address] [address] 12/05/2024 3:00 PM EDT Office Visit Nephrology - [address] [phone] Alex Davidson MD 100 [facility] [address] [place] [address] documented as of this encounter Visit Diagnoses Not on filedocumented in this encounter Care Teams Dietist Relationship Specialty Start Date End Date Guerline Lott MD [address] [place] [address] PCP - General Internal Medicine 12/28/21 documented as of this encounter
== END 2024-10-15 15:40 | disposition home or self-care (01) ==
LOC: HO.PMC 15:08
PROVIDERS: PCP Family Medicine; Referring Provider Physician Assistant Medical; Visit Provider Anesthesiology
DX: M25.511 Pain in right shoulder (principal); M25.512 Pain in left shoulder; M54.2 Cervicalgia; M19.011 Primary osteoarthritis, right shoulder; M19.012 Primary osteoarthritis, left shoulder; M16.0 Bilateral primary osteoarthritis of hip; M47.812 Spondylosis without myelopathy or radiculopathy, cervical region
CPT/HCPCS: 99203

== ENCOUNTER → 2024-10-15 15:07 | Outpatient (BNVA) | payer MEDICARE, OTHER, SELFPAY | PROVIDERS: PCP Family Medicine; Referring Provider Physician Assistant Medical; Visit Provider Anesthesiology | DX: M25.511 Pain in right shoulder (principal); M25.512 Pain in left shoulder; M54.2 Cervicalgia; M19.011 Primary osteoarthritis, right shoulder; M19.012 Primary osteoarthritis, left shoulder; M16.0 Bilateral primary osteoarthritis of hip; M47.812 Spondylosis without myelopathy or radiculopathy, cervical region | CPT/HCPCS: 99202 ==